=== PATIENT | male | born 1965 | race Caucasian/White ===

== ENCOUNTER 2018-05-25 10:29 | Day surgery (SDC) | payer OTHER ==
[2018-05-24 11:45] LABS: BASOPHILS # (AUTO) 0.02 x10^3/uL (0-0.1); BASOPHILS % (AUTO) 0 % (0-1); EOSINOPHILS # (AUTO) 0.16 x10^3/uL (0-0.4); EOSINOPHILS % (AUTO) 3 % (1-7); LYMPHOCYTES # (AUTO) 1.73 x10^3/uL (1-3.4); LYMPHOCYTES % (AUTO) 30 % (22-44); MD NO; MEAN CORPUSCULAR HEMOGLOBIN 28.9 pg (27.5-34.5); MEAN CORPUSCULAR HGB CONC 33.5 g/dL (33.2-36.2); MEAN CORPUSCULAR VOLUME 86.3 fL (81-97); MEAN PLATELET VOLUME 8.4 fL (7.4-10.4); MONOCYTES # (AUTO) 0.44 x10^3/uL (0.2-0.8); MONOCYTES % (AUTO) 8 % (2-9); NEUTROPHILS # (AUTO) 3.43 x10^3/uL (1.8-6.8); NEUTROPHILS % (AUTO) 59 % (42-75); PLATELET COUNT 287 x10^3/uL (130-400); RED BLOOD COUNT 4.64 x10^6/uL (4.38-5.82); RED CELL DISTRIBUTION WIDTH 13.6 % (9.4-14.8)
[2018-05-24 11:46] LABS: HCT (SEDRATE) 40.2 % (39.2-51.8)
[2018-05-24 11:47] LABS: MICROSCOPIC NOT IND
[2018-05-24 11:48] LABS: CULTURE INDICATED? NO
[2018-05-24 11:55] LABS: ALANINE AMINOTRANSFERASE 32 U/L (12-78); ALBUMIN 4.1 g/dL (3.4-5.0); ANION GAP 8 mmol/L (5-15); CALCIUM 9.4 mg/dL (8.5-10.1); CHLORIDE 108 mmol/L (98-107)
[2018-05-24 11:58] LABS: ALKALINE PHOSPHATASE 53 U/L (45-117); BILIRUBIN,TOTAL 0.3 mg/dL (0.2-1.0); CREATININE 0.97 mg/dL (0.7-1.3); TOTAL PROTEIN 7.5 g/dL (6.4-8.2)
[2018-05-24 12:06] LABS: INTERNATIONAL NORMALIZED RATIO 0.95 (0.93-1.1); PROTHROMBIN TIME 10.1 Seconds (9.6-11.5)
[~2018-05-25] VITALS: Ht 177.8 cm; Wt 114.5 kg
[~2018-05-25 10:29] MED LIST: ASPI-650 PO; BUPIVACAINE/PF-EPI 0.5% 1:200K ONE; DIAZ5TAB4 PO; FENO145T32 PO; IBUP-1223 PO; OMEP40CA6 PO; OXYCODONE HCL PO; TELM40TA PO; TRANEXAMIC ACID 100 MG/ML, 10ML ONE; VANCOMYCIN 1,000 MG ONE
[2018-05-25 10:48] VITALS: BP 130/78
[2018-05-25] MEDS ORDERED: LACTATED RINGERS 1,000 ML IV SCH (10:52)
[2018-05-25] MEDS ORDERED: FENTANYL PF 100 MCG/2ML ONE ×2 (11:45→14:15)
[2018-05-25] MEDS ORDERED: MIDAZOLAM 1 MG/ML, 2ML ONE ×2 (11:46→14:15)
[2018-05-25] MEDS ORDERED: CEFAZOLIN 1,000 MG ONE (12:14)
[2018-05-25] MEDS ORDERED: BUPIVACAINE/PF 0.5% ONE (12:14)
[2018-05-25] MEDS ORDERED: KETAMINE 50 MG/ML, 10ML ONE (12:14)
[2018-05-25] MEDS ORDERED: PROPOFOL 10 MG/ML, 20ML ONE (12:14)
[2018-05-25] MEDS ORDERED: HYDROmorphone 2 MG/ML, 1ML ONE (14:12)
[2018-05-25] MEDS: HYDROmorphone 1 MG/ML, 1ML IV PRN ×3 (14:13→14:30)
[2018-05-25] MEDS ORDERED: MEPERIDINE/PF 50 MG/ML ONE (14:15)
[2018-05-25] MEDS ORDERED: OXYcodone 5 MG/5 ML ORAL.SOL UDC ONE (14:16)
[2018-05-25] MEDS: MEPERIDINE/PF 25MG/0.5ML IVPush PRN ×2 (14:20→14:40)
[2018-05-25] MEDS ORDERED: MIDAZOLAM 1 MG/ML, 2ML IV PRN (14:30)
[2018-05-25] MEDS ORDERED: ONDANSETRON 2MG/ML, 2ML IVPush PRN (14:30)
[2018-05-25] MEDS ORDERED: FENTANYL PF 100 MCG/2ML IV PRN (14:30)
[2018-05-25] MEDS ORDERED: OXYcodone 5 MG/5 ML ORAL.SOL UDC PO PRN (14:30)
[2018-05-25] MEDS ORDERED: LABETALOL 5MG/ML, 20ML IV PRN (14:30)
== END 2018-05-25 17:00 | disposition home or self-care (01) ==
LOC: OUT 10:29
PROVIDERS: ATTEND Orthopaedic Surgery Orthopaedic Surgery of the Spine
DX: S76.111A Strain of right quadriceps muscle, fascia and tendon, initial encounter (principal); X58.XXXA Exposure to other specified factors, initial encounter; Y93.9 Activity, unspecified; Y92.9 Unspecified place or not applicable; Y99.9 Unspecified external cause status; I10 Essential (primary) hypertension; K21.9 Gastro-esophageal reflux disease without esophagitis; Z79.899 Other long term (current) drug therapy; Z96.651 Presence of right artificial knee joint; Z98.890 Other specified postprocedural states
CPT/HCPCS: 27380; 36415; 71046; 80053; 81003; 85025; 85610; 85651; 85730; 93005; J0690; J1170; J2175; J2250; J2704; J3370; J3490; J7120; J3010